=== PATIENT | female | born 1980 | race Caucasian/White ===

== ENCOUNTER 2019-01-13 23:05 | Emergency (ER) | payer MEDICAID ==
[~2019-01-13] VITALS: Ht 154.9 cm; Wt 59.0 kg
[2019-01-13 23:05] VITALS: BP 119/90
--- NOTE | 2019-01-13 23:05 | NUR ---
EKG PERFORMED IN TRIAGE ROOM
--- NOTE | 2019-01-13 23:05 | NUR ---
TO BED # 03 AMBULATORY
--- NOTE | 2019-01-13 23:34 | NUR ---
PT PRESENTS TO THE ED WITH C/O CHEST PAIN. PT STATES SHE HAS BEEN HAVING CHEST PAIN FOR 3 DAYS BUT WITH INCREASED SEVERITY TODAY. PT ALSO REPORTS PAIN IN HER ABD BUT DENIES ANY NAUSEA, VOMITING OR DIARRHEA. BOWEL SOUNDS PRESENT ON ALL QUADRANTS, NO TENDERNES WITH PALPATION. PT ALSO C/O DYSURIA. PT ASKED TO PROVIDE URINE SAMPLE. PT ON ROOM AIR. NO S/S OF DISTRESS AT THIS TIME. VITAL SIGNS WITHIN NORMAL LIMITS
[2019-01-14 00:47] LABS: BASOPHILS % (AUTO) 0.4 % (0.0-2.0); EOSINOPHILS % (AUTO) 0.3 % (0.0-4.0); HEMATOCRIT 39.4 % (36-48); HEMOGLOBIN 13.4 g/dL (12.0-16.0); LYMPHOCYTES # (AUTO) 2.1 K/uL (2.5-16.5); LYMPHOCYTES % (AUTO) 21.3 % (20.5-51.1); MEAN CORPUSCULAR HEMOGLOBIN 28 pg (27-31); MEAN CORPUSCULAR HGB CONC 34 g/dL (33-37); MEAN CORPUSCULAR VOLUME 83.3 fL (80-94); MONOCYTES # (AUTO) 0.5 K/uL (0.8-1.0); MONOCYTES % (AUTO) 5.4 % (1.7-9.3); NEUTROPHILS # (AUTO) 7.2 K/uL (1.8-7.7); NEUTROPHILS % (AUTO) 72.6 % (42.2-75.2); PLATELET COUNT (AUTO) 335 K/uL (140-450); RED BLOOD CELL COUNT(AUTO) 4.73 MIL/uL (4.20-5.40); RED CELL DISTRIBUTION WIDTH 13.9 % (11.6-13.7); WHITE BLOOD COUNT (AUTO) 9.9 K/uL (4.8-10.8)
--- NOTE | 2019-01-14 00:58 | NUR ---
XRAY AT BEDSIDE
[2019-01-14 01:03] LABS: ALBUMIN 4.2 g/dL (3.4-5.0); ANION GAP 14.2 (8-16); CARBON DIOXIDE 23.2 mmol/L (21-32); CREATININE 0.6 mg/dL (0.6-1.3); POTASSIUM 3.4 mmol/L (3.5-5.1); TOTAL BILIRUBIN 0.3 mg/dL (0.0-1.0)
[2019-01-14] MEDS ORDERED: KETOROLAC 15 MG/ML VIAL IM ONE (03:35)
[2019-01-14 03:56] VITALS: BP 131/77
== END 2019-01-14 03:57 | disposition home or self-care (01) ==
LOC: MED 23:05
DX: M94.0 Chondrocostal junction syndrome [Tietze] (principal); M79.604 Pain in right leg
CPT/HCPCS: 36415; 71045; 80053; 81002; 81025; 84484; 85025; 85379; 85651; 86140; 93005; 96372; 99284; J1885; Q0092